=== PATIENT | female | born 1980 ===

== ENCOUNTER 2023-12-11 10:54 | Outpatient (CLI) | payer BC, SELFPAY ==
--- NOTE | ~2023-12-11 | US_ITS ---
EXAMINATION: US pelvic complete w TV DATE: 12/11/2023 11:20 INDICATION: EXCESSIVE AND FREQUENT MENSTRATION , missing IUD strings. TECHNIQUE: Multiple transabdominal and endovaginal sonographic images of the pelvis were obtained. COMPARISON: None. FINDINGS: Uterus: 8.0 x 4.3 x 4.7 cm. The IUD is within the uterine body. Heterogeneous appearing endometrial c omplex, partially obscured by shadowing from the IUD. Endometrial complex measures 8 mm, with focal h yperechoic and hypoechoic areas. Nabothian cyst. Right Ovary: 2.5 x 0.9 x 2.2 cm. Vascular flow is present. No adnexal mass. Left Ovary: Not visualized. There is no free fluid in the pelvis. IMPRESSION: IUD, in good position. Heterogeneous endometrial complex, partially obscured by the IUD. Focal endometrial echogenicities an d hypoechoic areas may represent blood/clot depending on the menstrual phase or presence of active me nses. Left ovary not visualized. Reviewed, dictated and finalized at location [facility]. IMPRESSION: IUD, in good position. Heterogeneous endometrial complex, partially obscured by the IUD. Focal endomet rial echogenicities and hypoechoic areas may represent blood/clot depending on the menstrual phase or presence of active menses. Left ovary not visualized.
--- NOTE | ~2023-12-11 | MM_ITS ---
EXAMINATION: MM screening ramón BI w germain HISTORY: Screening mammogram TECHNIQUE: Craniocaudal and mediolateral oblique 3-D tomosynthesis images were obtained and synthetic 2-D images were generated. CAD analysis was submitted and interpreted. COMPARISON: No prior mammogram is available for comparison at this institution. BREAST PARENCHYMAL COMPOSITION:Not Dense. There are scattered areas of fibroglandular density. FINDINGS: No suspicious mass, calcification, or architectural distortion are identified in either fabian ast to suggest malignancy. IMPRESSION: No mammographic evidence of malignancy. Recommend routine screening mammography in one year. BI-RADS Category 1: Negative Reviewed, dictated and finalized at location .
== END 2023-12-11 10:55 ==
PROVIDERS: PCP Obstetrics & Gynecology; Visit Provider Obstetrics & Gynecology
DX: Z12.31 Encounter for screening mammogram for malignant neoplasm of breast (principal); T83.32XA Displacement of intrauterine contraceptive device, initial encounter; N92.0 Excessive and frequent menstruation with regular cycle
CPT/HCPCS: 76830; 76856; 77063; 77067